=== PATIENT | female | born 1960 | race Caucasian/White ===

== ENCOUNTER 2022-01-18 13:14 | Emergency (ER) | payer BC ==
--- NOTE | 2022-01-18 15:18 | RAD REPORT ---
EXAM DESCRIPTION: CT - Head Brain Wo Cont - 01/18/2022 3:08 pm CLINICAL HISTORY: head injury COMPARISON: Abdomen Pelvis Wo Contrast dated 12/07/2021; Abdomen Pelvis Wo Contrast dated 021; Stone Protocol dated 07/28/2021; Stone Protocol dated 04/06/2021No comparisons TECHNIQUE: All CT scans are performed using dose optimization technique as appropriate and may inclu de automated exposure control or mA/KV adjustment according to patient size. FINDINGS: No intracranial hemorrhage, hydrocephalus or extra-axial fluid collection.No areas of brai n edema or evidence of midline shift. The paranasal sinuses and mastoids are clear. The calvarium is intact. IMPRESSION: No acute intracranial abnormality.
--- NOTE | 2022-01-18 15:29 | ER ---
Nurse's Notes [facility] Name: Julienne Levine Age: 61 yrs Sex: Female : 1960 Arrival Date: 01/18/2022 Time: 13:16 Bed 11 Private MD: Diagnosis: Unspecified injury of head, initial encounter Presentation: 01/18 13:20 Chief complaint: Patient states: Wagon handle hit the back of her head 1 hour [employer]. No ll1 LOC or blood thinners. No N/V. Coronavirus screen: Vaccine status: Patient reports receiving the 2nd dose of the covid vaccine. Client denies travel out of the [place] in the last 14 days. At this time, the client does not indicate any symptoms associated with coronavirus-19. Ebola Screen: Patient denies travel to an Ebola-affected area in the 21 days before illness onset. Initial Sepsis Screen: Does the patient meet any 2 criteria? No. Patient's initial sepsis screen is negative. Does the patient have a suspected source of infection? No. Patient's initial sepsis screen is negative. Risk Assessment: Do you want to hurt yourself or someone else? Patient reports no desire to harm self or others. Onset of symptoms was January 18, 2022. 13:20 Method Of Arrival: Ambulatory ll1 13:20 Acuity: DEB 4 ll1 Triage Assessment: 13:21 General: Appears in no apparent distress. Behavior is calm, cooperative, appropriate ll1 for age. Pain: Denies pain. Neuro: Reports being hit in the head. Historical: - Allergies: 13:21 No Known Allergies; ll1 - PMHx: 13:21 None; ll1 - PSHx: 13:21 section; ll1 - Immunization history:: Client reports receiving the 2nd dose of the Covid vaccine. - Social history:: Smoking status: Patient denies any tobacco usage or history of. Screenin:42 Abuse screen: Denies threats or abuse. Denies injuries from another. Nutritional ss screening: No deficits noted. Tuberculosis screening: Never had TB. Fall Risk Fall in past 12 months (25 points). Assessment: 14:34 Reassessment: No changes from previously documented assessment. Patient and/or family ll1 updated on plan of care and expected duration. Pain level reassessed. Patient is alert, oriented x 3, equal unlabored respirations, skin warm/dry/pink. Vital Signs: 13:20 BP 118 / 79; Pulse 80; Resp 16; Temp 98.1; Pulse Ox 100% ; Weight 56.7 kg; Height 5 ft. ll1 5 in. (165.10 cm); Pain 1/10; 13:20 Body Mass Index 20.80 (56.70 kg, 165.10 cm) ll1 ED Course: 13:16 Patient arrived in ED. ds1 13:21 Triage completed. ll1 13:21 Arm band placed on. ll1 14:33 Patient placed in an exam room, on a stretcher. ll1 14:34 Fco Haro PA is PHCP. [facility] 14:34 Anibal Solis MD is Attending Physician. [facility] 15:10 CT Head Brain wo Cont In Process Unspecified. EDMS 15:41 Dora Waller, RN is Primary Nurse. ss 15:41 No provider procedures requiring assistance completed. Patient did not have IV access ss during this emergency room visit. 15:42 Patient has correct armband on for positive identification. ss Administered Medications: No medications were administered Outcome: 15:29 Discharge ordered by . [facility] 15:41 Discharged to home ambulatory. ss 15:41 Condition: good 15:41 Discharge instructions given to patient, Instructed on discharge instructions, follow up and referral plans. Demonstrated understanding of instructions, follow-up care. 15:43 Patient left the ED. ss Signatures: Dispatcher [employer] EDMS Fco Haro PA PA Daphne Sheffield ds1 Dora Waller, MICHELLE RN Shira Mcconnell RN RN 1
--- NOTE | 2022-01-18 15:30 | EDPHYS ---
Physician Documentation [facility] Name: Julienne Levine Age: 61 yrs Sex: Female : 1960 Arrival Date: 01/18/2022 Time: 13:16 Bed 11 Private MD: ZAK Physician Anibal Solis HPI: 01/18 14:45 This 61 yrs old Female presents to ER via Ambulatory with complaints of Fall injury. jmm 14:45 The patient or guardian reports injury, pain. Onset: The symptoms/episode jmm began/occurred acutely, just prior to arrival. Associated signs and symptoms: Loss of consciousness: This patient did not experience any loss of consciousness. Pertinent positives: injury, Pertinent negatives: the patient has not experienced a loss of conciousness, patient denies any alcohol consumption, neck pain, seizure, vomiting, weakness in extremities. The patient has not experienced similar symptoms in the past. Patient states hitting her head with a trailer wagon while pulling it using a lawnmower. Complains of headache, denies vomiting, LOC. Patient does have a mild posterior scalp headache/pain. . Historical: - Allergies: 13:21 No Known Allergies; ll1 - PMHx: 13:21 None; ll1 - PSHx: 13:21 section; ll1 - Immunization history:: Client reports receiving the 2nd dose of the Covid vaccine. - Social history:: Smoking status: Patient denies any tobacco usage or history of. ROS: 14:45 Constitutional: Negative for fever, chills, and weight loss, Cardiovascular: Negative jmm for chest pain, palpitations, and edema, Respiratory: Negative for shortness of breath, cough, wheezing, and pleuritic chest pain. 14:45 Neuro: Positive for headache. 14:45 All other systems are negative. Exam: 14:45 Constitutional: This is a well developed, well nourished patient who is awake, alert, jmm and in no acute distress. 14:45 Eyes: EOMI, no conjunctival erythema appreciated ENT: Moist Mucus Membranes Neck: Trachea midline, Supple Chest/axilla: Normal chest wall appearance and motion. Cardiovascular: Regular rate and rhythm. No edema appreciated Respiratory: Normal respirations, no respiratory distress appreciated Abdomen/GI: Non distended, soft Back: Normal ROM Skin: General appearance color normal MS/ Extremity: Moves all extremities, no obvious deformities appreciated, no edema noted to the lower extremities Neuro: Awake and alert Psych: Behavior is normal, Mood is normal, Patient is cooperative and pleasant 14:45 Head/face: Exam is negative for graham signs, raccoon eyes. Vital Signs: 13:20 BP 118 / 79; Pulse 80; Resp 16; Temp 98.1; Pulse Ox 100% ; Weight 56.7 kg; Height 5 ft. ll1 5 in. (165.10 cm); Pain 1/10; 13:20 Body Mass Index 20.80 (56.70 kg, 165.10 cm) ll1 MDM: 14:40 Patient medically screened. [facility] 15:28 Data reviewed: vital signs, nurses notes. Counseling: I had a detailed discussion with rupinder the patient and/or guardian regarding: the historical points, exam findings, and any diagnostic results supporting the discharge/admit diagnosis, radiology results, the need for outpatient follow up, to return to the emergency department if symptoms worsen or persist or if there are any questions or concerns that arise at home. ED course: Patient given head injury return precautions. patient understood and agrees with the plan of care. . 01/18 14:43 Order name: CT Head Brain wo Cont; Complete Time: 15:28 [facility] Administered Medications: No medications were administered Disposition Summary: 01/18/22 15:29 Discharge Ordered Location: Home [facility] Condition: Stable [facility] Diagnosis - Unspecified injury of head, initial encounter [facility] Followup: [facility] - With: Private Physician - When: 2 - 3 days - Reason: Recheck today's complaints, Continuance of care, Re-evaluation by your physician Discharge Instructions: - Discharge Summary Sheet [facility] - Head Injury, Adult [facility] Forms: - Medication Reconciliation Form [facility] - Thank You Letter [facility] - Antibiotic Education [facility] - Prescription Opioid Use [facility] Addendum: 01/22/2022 18:35 Co-signature as Attending Physician, Anibal shelton Signatures: Dispatcher [employer] Anibal Powers MD MD cha Mickail, Joel, PA PA jmm Lewis, Lynsay, RN RN ll1
[2022-01-18 17:30] VITALS: BP 118/79; TEMP 98.1; O2SAT 100
== END 2022-01-18 15:43 | disposition home or self-care (01) ==
LOC: ER 13:14
DX: S09.90XA Unspecified injury of head, initial encounter (principal); W22.8XXA Striking against or struck by other objects, initial encounter
CPT/HCPCS: 70450; 99283